=== PATIENT | female | born 1955 | race Caucasian/White ===

== ENCOUNTER → 2016-04-13 | Outpatient (CLI) | payer BC ==
--- NOTE | 2016-04-13 15:52 | DX ---
Lumbar spine,2 views 04/13/2016 History: Low back pain x6 months. Comparison examination: March 07, 2015 Findings: 37 degrees dextroscoliosis from T12 through L4 appears unchanged. Secondary multilevel dege nerative disk disease, with intervertebral disk height loss at L1-L2, L2-L3, L3-L4, L4-L5. No fractur e or subluxation is identified. Impression: Lumbar dextroscoliosis and multilevel degenerative disk disease, similar to March 07 16.
== END ==
LOC: CIMAGING 15:27
PROVIDERS: ATTEND Internal Medicine
DX: M51.36 Other intervertebral disc degeneration, lumbar region (principal); M41.9 Scoliosis, unspecified
CPT/HCPCS: 72100-PO

== ENCOUNTER 2016-04-18 22:03 | Emergency (ER) | payer BC ==
[2016-04-18 22:17] VITALS: BP 160/106; PULSE 108; RESP 20; TEMP 99; O2SAT 94
== END 2016-04-18 22:19 | disposition left against medical advice (07) ==
LOC: CED 22:03
DX: R10.30 Lower abdominal pain, unspecified (principal); R19.7 Diarrhea, unspecified; Z53.21 Procedure and treatment not carried out due to patient leaving prior to being seen by health care provider

== ENCOUNTER 2016-09-27 21:19 | Emergency (ER) | payer BC ==
--- NOTE | 2016-09-27 21:46 | EDPHY ---
H & P Time Seen by Provider: 09/27/16 21:45 HPI/ROS: CHIEF COMPLAINT: Trouble bending the right knee HISTORY OF PRESENT ILLNESS: Patient is long history of chronic pain and has a known right meniscus injury. She has been seen before for jaw spasm in our [facility] Emergency Department. She has been having some more bilateral leg cramping for the last several days and then since 4:00 p.m. today had difficulty flexing her right knee. She feels like it is "locked" in extension and has a lot of pain trying to bend it. No fever or chills and no recent trauma or injury. REVIEW OF SYSTEMS: Chronic right footdrop and decreased sensation which is unchanged. No chest pain or trouble breathing, no N/V, no back pain. PAST MEDICAL HISTORY: History and physical dated 01/17/2011 reviewed by myself. Includes chronic pain syndrome after L4 vertebral fracture as a teenager. Osteoarthritis. Trigeminal neuralgia. 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 Raynaud. Chronic TMJ. Social history: Here with General Appearance: Alert and conversant, cooperative. Normal dorsalis pedis pulses in both feet, both feet are warm and well perfused. Normal range of motion of both ankles. Left leg is normal range of motion of knee and hip. Skin on the right leg and knee is normal. No knee joint effusion. Stable to varus and valgus stress and Сергей's is negative. I can flex the patient's knee passively to 75 degrees and she has pain in the quadriceps area which feels very tight when I flex her knee. I can easily extend her when I re-straighten her knee. Knee not mechanically locked. Compartments are soft in thigh and calf. Emergency Department course/MDM: Patient clinically more likely to have muscle spasm than joint infection, locked meniscus, fracture, DVT, neurologic problem, vascular occlusion. Procedure: Trigger point injection Indication: Muscle spasm in the right quadriceps refractory to oral narcotics and 10 mg of Valium today. Risk benefit and alternatives discussed and consented. Standard sterile technique 10 mL is of 0.5% Marcaine were injected into the midline of distal quadriceps on the anterior surface. Pullback did not reveal any blood in the syringe. Patient will be discharged with symptomatic treatment and follow up with her primary care doctor. Smoking Status: Never smoked Constitutional: Initial Vital Signs Temperature (C) 37.0 C 09/27/16 22:15 Heart Rate 94 09/27/16 22:15 Respiratory Rate 20 09/27/16 22:15 Blood Pressure 139/91 H 09/27/16 22:15 O2 Sat (%) 94 09/27/16 22:15 O2 Delivery Mode Room Air Allergies/Adverse Reactions: iodine [Iodine] Allergy (Severe, Verified 09/27/16 22:18) Anaphylaxis Sulfa (Sulfonamide Antibiotics) Allergy (Severe, Verified 09/27/16 22:18) Anaphylaxis Tetanus & Diphthe *RETIRED-11/10/11 [Tetanus and Diphtheria Toxoid] Allergy ( Severe, Verified 09/27/16 22:18) Anaphylaxis azithromycin [Azithromycin] Allergy (Intermediate, Verified 09/27/16 22:18) NAUSEA, ABD PAIN, DIARRHEA carbamazepine [From Tegretol] Allergy (Verified 09/27/16 22:18) Other-Enter Comments ciprofloxacin [From Cipro] Allergy (Verified 09/27/16 22:18) Other-Enter Comments ciprofloxacin HCl [From Cipro] Allergy (Verified 09/27/16 22:18) Other-Enter Comments diclofenac Allergy (Verified 09/27/16 22:18) Vomiting NSAIDS (Non-Steroidal Anti-Inflamma Allergy (Verified 09/27/16 22:18) Vomiting Home Medications: Medication Instructions Recorded Diazepam [Valium] 05/03/11 Zolpidem Tartrate [Ambien] 05/03/11 Soma (RX) 09/05/13 Hydrocodone/Acetaminophen [Vicodin 09/05/14 5-300 mg Tablet] Ondansetron HCl [Zofran] 4 mg PO Q4-6PRN PRN #8 tablet 09/05/14 MDM/Departure - Depart Disposition: Home, Routine, Self-Care Clinical Impression: Muscle spasm of right leg, Knee pain, right Condition: Good Instructions: Muscle Spasm (ED) Referrals: Scott Barry MD [Primary Care Provider] - As per Instructions
[2016-09-27 22:17] VITALS: BP 139/91; PULSE 94; RESP 20; O2SAT 94
[2016-09-27 22:33] VITALS: TEMP 98.8
== END 2016-09-27 22:40 | disposition home or self-care (01) ==
LOC: CED 21:19
PROC: 3E023GC Introduction of Other Therapeutic Substance into Muscle, Percutaneous Approach (ICD-10-PCS; principal; 2016-09-27)
DX: M25.561 Pain in right knee (principal); M62.838 Other muscle spasm